=== PATIENT | female | born 1960 | race Caucasian/White ===

== ENCOUNTER 2016-06-20 10:01 | Emergency (ER) | payer MEDICAID ==
[~2016-06-20] VITALS: Ht 165.1 cm; Wt 79.4 kg
[2016-06-20 11:02] VITALS: BP 136/88
== END 2016-06-20 11:07 | disposition home or self-care (01) ==
LOC: ER 10:06
DX: R07.9 Chest pain, unspecified (principal); B02.9 Zoster without complications; I10 Essential (primary) hypertension; F41.9 Anxiety disorder, unspecified; Z90.89 Acquired absence of other organs; Z90.49 Acquired absence of other specified parts of digestive tract; Z88.2 Allergy status to sulfonamides; Z88.8 Allergy status to other drugs, medicaments and biological substances
CPT/HCPCS: 71010; 93005; 99284; A4606; Z7610